=== PATIENT | male | born 1975 | race Caucasian/White ===

== ENCOUNTER 2016-11-08 10:30 | Day surgery (SDC) | payer BC ==
[~2016-11-08 10:30] MED LIST: ACETAMINOPHEN 325 MG TABLET PO PRN; DEXAMETHASONE SOD PHOSPHATE 10 MG/ML VIAL IV PRN; MORPHINE SULFATE 10 MG/ML SYRG IV PRN; MORPHINE SULFATE 4 MG/ML SYRG IV PRN; ONDANSETRON HCL/PF 2 MG/ML VIAL IV PRN; RINGERS SOLUTION,LACTATED 1,000 ML IV PRN; ceFAZolin SODIUM 1 GM in DEXTROSE 5 % IN WATER 100 ML IV PRN; oxyCODONE HCL/ACETAMINOPHEN 1 TAB TABLET PO PRN
--- OUTSIDE RECORDS SUMMARY | 2016-11-08 10:34 | XMS REPORT | Continuity of Care Document ---
:1975 Author Organization [facility] ([facility]) Address [address] [place] [address] Phone [phone] Care Team Providers Name Role Phone Provider, No-Primary Care Primary Care Provider Unavailable Source Comments This disclosure is being made pursuant to the Care Everywhere program, applicable federal and state laws, and may not contain all informaitonavailable regarding this patient.[facility] ([facility]) Active Allergies and Adverse Reactions No Known Allergies Current Medications Not on file Active Problems Not on file Immunizations Name Dates Previously Given Next Due Tdap 09/17/2011 Social History Tobacco Use Types Packs/Day Years Used Date Never Assessed Plan of Care Health Maintenance Due Date Last Done Comments Hepatitis B Vaccine (1 of 3 - Primary Series) 1975 Lipid Disorder Screening 1993 MMR Vaccine 1993 Influenza Vaccine: Seasonal (#1) 03/19/2016 Td Vaccine 09/17/2021 09/17/2011 Tdap Vaccine Completed 09/17/2011 Results from Last 3 Months Not on file
--- OUTSIDE RECORDS SUMMARY | 2016-11-08 10:34 | XMS REPORT | Continuity of Care Document ---
:1975 Author Organization [facility] [place] [address] Care Team Providers Name Role Phone Provider, Not In System Primary Care Provider Unavailable Source Comments This disclosure is being made pursuant to the Correlor program and maynot contain all information available regarding this patient.[employer] Active Allergies and Adverse Reactions Not on File Current Medications Be aware that medications may not be up to date as of this document. Alwaysverify current medications with the patient. Not on file Active Problems Not on file Social History Tobacco Use Types Packs/Day Years Used Date Never Assessed Plan of Care Health Maintenance Due Date Last Done Comments Tetanus/Pertussis (1 - Tdap) 1994 Influenza Immunization (#1) 2016 Results from Last 3 Months Not on file
[2016-11-08] MEDS: OXYMETAZOLINE HCL 150 SPRAY BTL NS PRN ×2 (11:00→12:42)
[2016-11-08] MEDS ORDERED: COCAINE HCL 4 APPL BTL TP ONE (13:03)
[2016-11-08] MEDS ORDERED: LIDOCAINE HCL/EPINEPHRINE 30 ML VIAL IJ ONE ×2 (13:03)
[2016-11-08] MEDS ORDERED: MUPIROCIN 22 APPL TUBE TP ONE (13:03)
[2016-11-08 15:09] VITALS: BP 144/99
== END 2016-11-08 10:31 | disposition home or self-care (01) ==
LOC: AMB 10:30
PROVIDERS: ATTEND Allergy & Immunology
PROC: 09BL0ZZ Excision of Nasal Turbinate, Open Approach (ICD-10-PCS; 2016-11-08)
PROC: 09SM0ZZ Reposition Nasal Septum, Open Approach (ICD-10-PCS; principal; 2016-11-08 14:55)
DX: J34.2 Deviated nasal septum (principal); J34.3 Hypertrophy of nasal turbinates; Z87.891 Personal history of nicotine dependence; Z68.30 Body mass index [BMI] 30.0-30.9, adult

== ENCOUNTER 2016-12-28 09:01 | Day surgery (SDC) | payer BC ==
[~2016-12-28 09:01] MED LIST changes: -ACETAMINOPHEN 325 MG TABLET PO PRN; -DEXAMETHASONE SOD PHOSPHATE 10 MG/ML VIAL IV PRN; +HYDROmorphone HCL 2 MG/ML VIAL IV PRN; -MORPHINE SULFATE 10 MG/ML SYRG IV PRN; -MORPHINE SULFATE 4 MG/ML SYRG IV PRN; -ONDANSETRON HCL/PF 2 MG/ML VIAL IV PRN; +ceFAZolin SODIUM 1 GM VIAL IV PRN; -ceFAZolin SODIUM 1 GM in DEXTROSE 5 % IN WATER 100 ML IV PRN
--- OUTSIDE RECORDS SUMMARY | 2016-12-28 09:05 | XMS REPORT | Continuity of Care Document ---
:1975 Author Organization [facility] ([facility]) Address [address] [place] [address] Phone [phone] Care Team Providers Name Role Phone Provider, No-Primary Care Primary Care Provider Unavailable Source Comments This disclosure is being made pursuant to the Care Everywhere program, applicable federal and state laws, and may not contain all informaitonavailable regarding this patient.[facility] ([facility]) Active Allergies and Adverse Reactions No Known [...]
[2016-12-28] MEDS ORDERED: RINGERS SOLUTION,LACTATED 1,000 ML IV ONE (09:32)
--- NOTE | 2016-12-28 11:04 | OR ---
Operative Report - Dictated Report Narrative: Date: 12/28/2016 Physician: Chris Higginbotham M.D. 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 Whitten Is a 41 year-old male who has been followed in my clinic with complaints of shoulder pain consistent impingement and labral pain. Physical exam and diagnostic imaging were consistent with his complaints and concern for partial-thickness rotator cuff tear, labral tear and acromioclavicular arthrosis. Conservative measures have failed including, but not limited to, passage of time, activity modification, medications, physical therapy/home exercise program, or injections. The risks, benefits, and alternatives were discussed in clinic. The risks being , bleeding, infection, blood clots, nerve, tendon, ligament, blood vessel injury, persistent pain, arthrosis, stiffness, need for prolonged therapy, need for additional procedures, and persistent symptoms. Consent was obtained in the clinic. Procedure: After marking the correct extremity in the preoperative holding area, a timeout was performed in the operating room. IV antibiotics consisting of Ancef were administered prior to the procedure. A general followed by regional anesthetic was induced by the nurse substance abuse counselor. This was in the supine position, then the patient was transitioned to a beachchair position with all bony prominences well-padded, head in neutral, the nonoperative arm well supported, and the legs padded with SCDs in place. The operative shoulder was then prepped and draped in a standard sterile fashion. Preoperatively the shoulder had full passive range of motion, and no instability. After marking out the bony landmarks, saline was infused into the joint through a posterior lateral portal site. A christiane incision was made, and the blunt trocar and cannula was introduced into the shoulder joint. An accessory portal was placed in the rotator cuff interval using a spinal needle for guidance. Upon initial evaluation, the biceps tendon showed no instability or tear. The middle glenohumeral ligament was intact. Subscapularis tendon was partially torn as it inserted on the humerus less than 50%. The glenoid showed normal arthrosis. The humeral head articular surface showed with essentially unremarkable although there was a small area just anterior to the biceps as it entered the joint that had a focal chondral defect approximately 1 cm diameter. The anterior labrum was frayed and a degenerative manner from approximately 8:00 to 2:00. The superior labrum was frayed as mentioned but otherwise not unstable. The pouch was unremarkable. The posterior labrum was frayed as above. The supraspinatus tendon was intact and unremarkable. The infraspinatus tendon was intact and unremarkable. Utilizing a shaver the anterior superior posterior labrum was debrided down to stable margin. The subscapularis tendon was also debrided down to stable margin. Attention was then turned to the subacromial space. Subacromial bursectomy was performed utilizing the prior portals. The coracoacromial ligament frayed but intact. The bursal side of the rotator cuff demonstrated no tear. The acromial arch was unremarkable. Attention was then turned to the distal clavicle. A longitudinal incision was made over the acromioclavicular joint. This was sharply dissected down to the chromic clavicular capsule. Cautery was utilized for hemostasis. A longitudinal capsulotomy was made and elevated off the anterior posterior aspects of the distal clavicle. There is notable hypertrophic bone and loss of joint space between the acromion and clavicle. Protecting the surrounding soft tissues, an oscillating saw was utilized in order to resect approximately 7-10 mm of bone from the distal clavicle. The remaining clavicle was stable after removing this. The shoulders place a range of motion and showed no remaining impingement between the acromion and the clavicle. Wounds were then thoroughly irrigated. The capsule was closed with interrupted 0 Vicryl to subcutaneous tissue with 3-0 Vicryl. Skin was closed with 4-0 nylon. The portal sites were closed with interrupted nylon. Dressings consisting of Xeroform, 4 x 4, ABD, soft roll, and tape were applied. All sponge, needle, blade, and instrument counts were correct prior to closing the wounds. The patient was awoken and transferred to the postanesthesia care unit in stable condition.
[2016-12-28 12:46] VITALS: BP 115/79
== END 2016-12-28 09:02 | disposition home or self-care (01) ==
LOC: AMB 09:01
PROVIDERS: ATTEND Orthopaedic Surgery
PROC: 0PBB0ZZ Excision of Left Clavicle, Open Approach (ICD-10-PCS; 2016-12-28)
PROC: 0RBK4ZZ Excision of Left Shoulder Joint, Percutaneous Endoscopic Approach (ICD-10-PCS; principal; 2016-12-28 10:45)
DX: M75.112 Incomplete rotator cuff tear or rupture of left shoulder, not specified as traumatic (principal); S43.492A Other sprain of left shoulder joint, initial encounter; M19.012 Primary osteoarthritis, left shoulder; M25.812 Other specified joint disorders, left shoulder; K21.9 Gastro-esophageal reflux disease without esophagitis; Z87.891 Personal history of nicotine dependence; Z68.29 Body mass index [BMI] 29.0-29.9, adult

== ENCOUNTER 2017-11-01 09:12 | Day surgery (SDC) | payer BC ==
--- NOTE | 2017-11-01 10:28 | OR ---
Anesthesia Pre Procedure Eval Date of Service: 11/01/17 Pre Procedure Evaluation: Last Vital Signs Temp 36.5 C 11/01/17 09:30 Pulse 63 11/01/17 09:30 Resp 16 11/01/17 09:30 BP 137/92 11/01/17 09:30 Pulse Ox 97 11/01/17 09:30 O2 Oxygen Delivery Method Room Air Anesthesia Pre Procedure Evaluation DATE: 11/01/2017. TIME: 1025 INDICATIONS: Seizure; headaches. PAST MEDICAL HISTORY: Is a 42-year-old male with a history of seizure and headaches. EXAM: Pain is 0/10 on pain scale at present. ASSESSMENT OF MEDICAL STATUS: O.K. to proceed with lumbar puncture. PLANNED PROCEDURE: lumbar puncture. Home Medications: HOME MEDICATIONS Escitalopram Oxalate [Lexapro] 10 mg PO DAILY 11/08/16 [Last Taken Unknown] Omeprazole [Prilosec] 20 mg PO DAILY 11/08/16 [Last Taken Unknown] Zolpidem Tartrate [Ambien] 10 mg PO HS PRN 12/12/16 [Last Taken Unknown] OXcarbazepine [Trileptal] 150 mg PO QAM 11/01/17 [Last Taken 11/01/17] OXcarbazepine [Trileptal] 300 mg PO HS 11/01/17 [Last Taken Unknown]
--- NOTE | 2017-11-01 11:00 | OR ---
Anesthesia Procedure Note - Anesthesia Procedure Note Date of Service: 11/01/17 Narrative: Vital Signs - Last Taken Temp 36.5 C 11/01/17 09:30 Pulse 62 11/01/17 10:31 Resp 18 11/01/17 10:31 BP 141/89 11/01/17 10:31 Pulse Ox 95 11/01/17 10:31 O2 Oxygen Delivery Method Room Air 11/01/17 10:58 ANESTHESIA PROCEDURE NOTE Date of Procedure: 11/01/2017. Time of procedure: 1040. Performed by: Joon Alfaro CRNA Cigar Head Puncher: None. Preprocedure diagnosis: Seizure; headaches. Post procedure diagnosis: Same. Procedure: Lumbar Puncture. Indications: The 42-year-old male with a recent history of seizure and headaches. Findings: Opening pressure = 21.5 mmHg Closing pressure = 20 mmHg. Details of the procedure: After informed consent was obtained the patient was placed in the right lateral decubitus position. Duraprep was applied to the patients back. The patient was then draped in a sterile fasion. Lidocaine 1% was infiltrated to the skin and subcutaneous tissues at the intended target site. The subarachnoid scace was identified at the level of the L4-5 interspace using a 22-gauge Pina spinal needle. Free flow of CSF was noted. Pressure measurements were obtained. Four specimens were drawn and sent to lab. The spinal needle was removed intact. A Band-Aid was applied to the patient's back. EBL: Minimal. Fluids: N/A. Specimen: N/A. Post procedure condition: The patient tolerated the procedure well. No complications were noted. Thank you for this consultation. Joon Alfaro CRNA
[2017-11-01 11:34] VITALS: BP 147/101
[2017-11-01 12:13] LABS: CSF Appearance Clear (CLEAR); CSF Color Colorless (COLORLESS)
[2017-11-01 12:14] LABS: CSF Appearance Clear (CLEAR); CSF Color Colorless (COLORLESS); CSF RBC 10 /uL (0-10); CSF WBC 58 /uL (0-10)
[2017-11-01 12:15] LABS: CSF Lymphocytes 97 % (0-100); CSF Lymphocytes 99 % (0-100); CSF RBC 1 /uL (0-10); CSF WBC 45 /uL (0-10)
[2017-11-01 12:40] LABS: Hematocrit 41.1 % (42.0-52.0); Hemoglobin 14.3 gm/dL (13.5-18.0); Mean Cell Volume 86.7 fl (78-100); Mean Corpuscular Hemoglobin 30.2 pg (27-31); Mean Corpuscular Hgb Conc 34.8 g/dl (32-36); Neutrophil # 3.4 K/mm3 (1.3-6.0); Neutrophil % 57.1 % (42-75.0); Platelet Count 229 K/mm3 (150-450); Red Blood Count 4.74 M/mm3 (4.7-6.0); Red Cell Distribution Width 12.6 % (11.5-14.0); White Blood Count 5.9 K/mm3 (4.0-10.5)
[2017-11-06 08:56] LABS: CSF ACE <5 U/L (< OR = 15); CSF Oligoclonal Bands NO BANDS (NO BANDS)
[2017-11-10 00:17] LABS: CSF IgG Synthesis -6.3 mg/24 h (-9.9 TO +3.3)
[2017-11-10 06:09] LABS: CSF IgG Index 0.36
[2017-11-15 19:23] LABS: WNV IgG Ab <1.30 index
== END 2017-11-01 09:13 | disposition home or self-care (01) ==
LOC: AMB 09:12
PROVIDERS: ATTEND Psychiatry & Neurology Neurology
PROC: 009U3ZX Drainage of Spinal Canal, Percutaneous Approach, Diagnostic (ICD-10-PCS; principal; 2017-11-01)
DX: G40.89 Other seizures (principal); R51 Headache